=== PATIENT | female | born 1975 | race Caucasian/White ===

== ENCOUNTER 2016-10-04 14:38 | Emergency (ER) | payer MEDICAID ==
--- NOTE | 2016-10-04 15:01 | ED Physician Chart ---
Chief Complaint/HPI - Patient Information Date Seen:: 10/04/16 Time Seen:: 14:59 Chief Complaint:: SORE THROAT, COUGH HEADACHE X5 DAYS History of Present Illness:: This 41-year-old female presents with a 5 day history that started with cough and then proceeded to involve chills, sore throat, tightness in the chest with cough and respiratory distress. The cough is productive of white sputum and she denies any hemoptysis. The chest tightness is a 2/10 when not coughing. Patient also reports that she has had wheezing. No radiation of the tightness to the neck, or into either upper extremity or the back. No similar prior symptoms. Patient states she has had a intermittent fine erythematous rash appearing on her arms and upper chest. The rash is not present at this time. Allergies:: Allergies Allergy/AdvReac Type Severity Reaction Status Date / Time No Known Allergies Allergy Verified 10/04/16 14:47 Vitals:: Vital Signs - 8 hr 10/04/16 14:48 Temp 79.9 F HR 82 RR 17 BP 109/75 O2 Sat % 99 Review of Systems - Review of Systems General/Constitutional: No fever, Chills, No weight loss, Diaphoresis, No edema , Loss of appetite Skin: Rash Head: Headache, No light-headedness Eyes: No loss of vision, No pain, No diplopia ENT: No earache, Nasal drainage, Sore throat, Other (Standard congestion.) Neck: No neck pain, No swelling, No thyromegaly, No stiffness, No mass noted Cardio Vascular: Chest pain, No palpitations, No orthopnea, No edema Pulmonary: SOB, Cough, Sputum, Wheezing GI: No nausea, No vomiting, No diarrhea, No pain, No hematemesis G/U: No dysuria, No frequency, No hematuria Verifier: No abnormal vaginal bleed Musculoskeletal: No bone or joint pain, Back pain, No back pain, Muscle pain ( muscle pain was generalized.) Endocrine: No polyuria, No polydipsia Psychiatric: No depression, No suicidal ideation Hematopoietic: No bruising, No lymphadenopathy Allergic/Immuno: No urticaria, No angioedema Neurological: No syncope, No focal symptoms (generalized weakness.), No paresthesia, Headache, No seizure, No dizziness, No confusion, No vertigo Past Medical History - Past Medical History Past Medical History: No significant medical hx Social History: Smoker, No Alcohol, No Drug Use Employment:: Weakness is generalized. Family Medical History - Family Member Mother Other Medical History: denies family medical history Physical Exam - Physical Examination General/Constitutional: Awake, Well-developed, well-nourished, Alert, No distress, Non-toxic appearing, Ambulatory Head: Atraumatic Eyes: Lids, conjuctiva normal, PERRL, EOMI Skin: Nl inspection, No rash, No skin lesions, No ecchymosis, Well hydrated, No lymphadenopathy (lots of tattoos) ENMT: External ears, nose nl, TM canals nl, Nasal exam nl, Lips, teeth, gums nl , Tonsils nl Other ENMT comments:: There is mild hyperemia without exudate in the posterior pharynx. No peritonsillar masses. The uvula is in the midline. No mucosal lesions inside of the mouth. Other Neck comments:: Patient has mild tenderness on palpation in the anterior neck but I don't palpate any enlarged nodes in that region. Labs/Radiology/EKG Results - Radiology Results Results: Single view chest x-ray: No cardiomegaly or CHF. No pneumothorax. No areas of pulmonary consolidation or infiltrate. No pleural effusion. Impression: No acute cardiopulmonary findings. EKG the time was 1534 hrs. The rhythm is sinus bradycardia with a rate of 58. No ectopy. The NH interval is normal. The QRS duration is normal. The QT interval is not prolonged. No Q waves. No ST segment elevation or depression. Normal appearing T waves. Impression no acute ischemic findings. The quick strep screen was negative. Assessment - Assessment General Assessment: CASE SUMMARY: this 41-year-old female presents with a five day history of cough that progressed into a sore throat and tightness in her chest and mild respiratory distress. On physical exam the patient appeared to be in no acute distress with an intermittent cough. There was minimal inflammation in the posterior pharynx with no tonsillar enlargement. Tonsillar mass. She had scattered wheezes on auscultation of the lungs with no rails. The cardiovascular examination was normal. The chest x-ray was negative for any evidence of pneumonia. The EKG was normal and there were no findings of acute ischemia. The rapid strep test was negative. I felt the patient's chest tightness was the result of her coughing. She was treated with 10 mg of dexamethasone IM. She was given a prescription for an albuterol MDI inhaler. I discussed with her the risk benefits of treating her with penicillin for what was most likely a viral pharyngitis. She concurred with no antibiotics. Discharged in stable condition with instructions to return to the emergency department if her symptoms worsened. She was further advised to follow up with her private medical doctor this coming week if her symptoms have not improved. MDM DDX COUGH AND CHEST TIGHTNESS: NOT Pneumonia based on exam and chest x- ray. NOT Ischemic heart disease based on the patient's history and physical exam. In addition the EKG was normal. NOT Luciana-tonsillar abscess based on physical examination. NOT Lemierre's syndrome based on neck examination. ED Septic Shock - . Is Septic Shock (SBP<90, OR Lactate>4 mmol\L) present?: No - <6hrs of presentation: Vital Signs: Vital Signs - 8 hr 10/04/16 14:48 Temp 79.9 F HR 82 RR 17 BP 109/75 O2 Sat % 99 Reassessment (Disposition) - Reassessment Reassessment Condition:: Unchanged - Diagnosis Diagnosis:: VIRAL PHARYNGITIS AND URI - Aftercare/Follow up Instructions Aftercare/Follow-Up Instructions:: Counseled pt regarding lab results/diagnosis & need follow up Medication Prescribed:: ALBUTEROL MDI INHALLER FOR COUGH. She was also advised that [id number] Robitussin-DM can be used to treat the cough. He was further advised that ibuprofen 600 mg every 6 hours was also effective in managing pain. - Patient Disposition Discharge/Transfer:: Home ED Discharge Plan - Patient Disposition Admit/Discharge/Transfer: PT DISCHARGED HOME Condition at Disposition: Stable Prescriptions: Albuterol Sulfate [Proventil Hfa*] 0.09 mg IH Q4H PRN #0 [email or web address] PRN Reason: Cough Instructions: Viral Pharyngitis, Upper Respiratory Infection, Adult, Easy-to- Read Accepting Physician: Srinivas Lenz V. [Provisional Staff] - 1-3 Days Forms: Work Release Form
[2016-10-04] MEDS ORDERED: Dexamethasone Sodium Phos 10 mg/mL PF Vial ONE (17:09)
[2016-10-04] MEDS: Dexamethasone Sodium Phos 4 mg/mL Vial IM STA (17:15)
--- NOTE | 2016-10-05 09:50 | Diagnostic Imaging Report ---
Portable chest x-ray History: Cough, shortness of breath Allowing for portable technique the heart size is normal. No focal pulmonary parenchymal processes. No hilar or mediastinal abnormalities. Impression: No acute abnormalities.
== END 2016-10-04 17:35 | disposition home or self-care (01) ==
LOC: ER 14:38
DX: J02.8 Acute pharyngitis due to other specified organisms (principal); B97.89 Other viral agents as the cause of diseases classified elsewhere; J06.9 Acute upper respiratory infection, unspecified; F17.200 Nicotine dependence, unspecified, uncomplicated
CPT/HCPCS: 71010-TC; 81025-TC; 87081-90; 93005

== ENCOUNTER 2018-07-02 16:38 | Emergency (ER) | payer SELFPAY ==
[2018-07-02 17:10] LABS: URINE SOURCE CLEAN C
[2018-07-02 18:02] LABS: URINE BILIRUBIN NEGATIVE (NEGATIVE); URINE BLOOD MODERATE (NEGATIVE); URINE GLUCOSE (UA) NEGATIVE (NEGATIVE); URINE KETONE NEGATIVE (NEGATIVE); URINE LEUKOCYTE ESTERASE MODERATE (NEGATIVE); URINE MICROSCOPIC INDICATED? YES; URINE NITRATE NEGATIVE (NEGATIVE); URINE PROTEIN 30 mg/dL (NEGATIVE); URINE UROBILINOGEN 0.2 E.U./dL (0.2 - 1.0)
[2018-07-02 18:06] LABS: URINE CLARITY HAZY (CLEAR); URINE COLOR YELLOW
[2018-07-02 18:07] LABS: URINE RBC 0-2 /hpf (0-5)
[2018-07-02 18:08] LABS: URINE EPITHELIAL CELLS FEW /lpf (FEW); URINE WBC 25-50 /hpf (0-5)
[2018-07-02 18:09] LABS: URINE BACTERIA MODERATE /hpf (NONE SEEN)
== END 2018-07-02 17:00 | disposition left against medical advice (07) ==
LOC: ER 16:38
DX: R50.9 Fever, unspecified (principal); Z53.21 Procedure and treatment not carried out due to patient leaving prior to being seen by health care provider
CPT/HCPCS: 81001-TC; 81025-TC; 87086-90; Z7502